=== PATIENT | female | born 1970 | race Two or more races ===

== ENCOUNTER 2024-12-17 07:34 | Outpatient (CLI) | payer OTHER | END 2024-12-17 07:44 | disposition home or self-care (01) | LOC: MAMO-SONO 07:34 | PROVIDERS: ATTEND Obstetrics & Gynecology | DX: N95.1 Menopausal and female climacteric states (principal); R10.2 Pelvic and perineal pain ==

== ENCOUNTER 2025-08-06 06:10 | Outpatient (CLI) | payer OTHER ==
[2025-08-06 08:08] LABS: CHOL HDL RATIO 4.1 (0-5.0); HDL 48.0 mg/dl (40-60); LDL 121.0 mg/dl (0-130); VLDL 28.0 (0-39)
[2025-08-07 09:11] LABS: ESTRADIOL SERUM 45.6 pg/mL (.)
== END 2025-08-06 06:13 | disposition home or self-care (01) ==
LOC: LAB 06:10
PROVIDERS: ATTEND Obstetrics & Gynecology
DX: I10 Essential (primary) hypertension (principal); N95.1 Menopausal and female climacteric states

== ENCOUNTER 2025-10-09 06:06 | Outpatient (CLI) | payer OTHER ==
[2025-10-09 06:43] LABS: URINE APPEARANCE Clear; URINE BILIRRUBIN Negative (NEGATIVE); URINE BLOOD Negative; URINE COLOR Yellow; URINE GLUCOSE Negative (NEGATIVE); URINE KETONE Negative (NEGATIVE); URINE LEUKOCYTE Negative; URINE NITRATE Negative; URINE PROTEIN Negative (NEGATIVE); URINE UROBILINOGEN 0.2 E.U./dl
[2025-10-09 06:46] LABS: BASO % 0.7 % (0.1-1.2); EOS # 0.25 (0.04-0.54); EOS % 4.3 % (0.7-7.0); LYMPH # 1.79 (1.18-3.74); LYMPH % 30.9 % (19.3-53.1); MEAN PLATELET VOLUME 10.40 fl (9.4-12.4); MONO # 0.52 (0.24-0.82); MONO % 9.0 % (4.7-12.5); NEUT # 3.17 (1.56-6.13); NEUT % 54.8 % (34.0-71.1); RED CELL DISTRIBUTION WIDTH 13.2 % (11.6-14.4)
[2025-10-09 06:47] LABS: URINE BACTERIA 968.1 uL (0.0-1933); URINE EPITHELIAL CELLS 7.9 uL (0.0-38.8); URINE RBC 9.0 uL (0.0-20.8); URINE WBC 4.6 uL (0.0-23.2)
[2025-10-09 06:52] LABS: URINE CAST 0.00 uL (0.0-1.40)
[2025-10-09 07:46] LABS: ALT/SGPT 30.0 U/L (12-78); AST/SGOT 18.0 U/L (15-37); BILIRUBIN TOTAL 0.46 mg/dL (0.3-1.2); BUN CREA RATIO 18.0 (7.0-25.0); CHOL HDL RATIO 3.4 (0-5.0); CREATININE SERUM 0.73 mg/dL (0.55-1.02); GFR 82.17; GLOBULINA 3.3 G/DL (2.4-3.5); GLUCOSE FASTING 105.0 mg/dL (65-100); HDL 57.0 mg/dl (40-60); LDL 101.0 mg/dl (0-130); OSMOLALITY SERUM 284.0 MOSM/KG (275-295); TSH 2.18 uIU/mL (0.358-3.74); VLDL 32.0 (0-39)
== END 2025-10-09 06:10 | disposition home or self-care (01) ==
LOC: LAB 06:06
DX: E11.69 Type 2 diabetes mellitus with other specified complication (principal); I11.9 Hypertensive heart disease without heart failure; E03.9 Hypothyroidism, unspecified; E78.00 Pure hypercholesterolemia, unspecified; R19.5 Other fecal abnormalities; N39.0 Urinary tract infection, site not specified; Z12.11 Encounter for screening for malignant neoplasm of colon; E55.9 Vitamin D deficiency, unspecified; E78.2 Mixed hyperlipidemia